=== PATIENT | male | born 1985 | race Hispanic/Latino ===

== ENCOUNTER → 2023-08-21 15:42 | Outpatient (CLI) | payer OTHER, SELFPAY ==
--- NOTE | 2023-08-21 15:44 | DI.MRI.S_ITS ---
PROCEDURE: MR ANKLE LT WO CON INDICATIONS: JOINT DERANGEMENT BILATERAL ANKLES TECHNIQUE: Noncontrast sagittal T1 spin echo and T2 fast spin echo with fat saturation, axial proton density fast spin echo and T2 fast spin echo with fat saturation, coronal T1 spin echo and T2 fast spin echo with fat saturation through the ankle/hindfoot. COMPARISON: None. FINDINGS: Image quality: Excellent. Bones and joints: Mild osseous edema is seen at the medial malleolus and at the lateral malleolus. Focal osteochondral lesion is seen at the lateral talar dome with overlying full-thickness cartilage loss and subchondral edema. No disruption of the subchondral plate or loose osteochondral fragment is seen. A large tibiotalar effusion is seen with mild synovial hypertrophy. Possible ossified intra-articular loose body lateral to the talus measuring approximately 17 x 6 mm. No hindfoot coalitions. Mild edema and cystic changes within the central calcaneus adjacent to the angle of Glissane. Medial structures: Suspected partial tearing of the the pars of the deltoid ligament. The deltoid ligament and the spring ligament complex are intact. Small amount of fluid in the posterior tibialis, flexor digitorum longus, and flexor hallucis longus tendon sheath may indicate tenosynovitis. The posterior tibial neurovascular bundle appears normal within the tarsal tunnel, without extrinsic mass effect. Lateral structures: Complete tearing of the anterior talofibular ligament and the calcaneofibular ligament. Posterior talofibular remains intact. Anterior and posterior tibiofibular ligaments are intact. There is moderate tendinosis and tenosynovitis of the peroneus brevis and longus tendons. There is partial effacement of the fat in the sinus tarsi. Anterior structures: The tibialis anterior, extensor hallucis longus, and extensor digitorum longus tendons appear intact. Posterior and plantar structures: Achilles tendon is intact. The proximal plantar fascia is intact. No abductor digiti minimi muscle atrophy to suggest Akers neuropathy. IMPRESSION: 1. Suspected osseous contusions at the medial and lateral malleoli. 2. Small osteochondral lesion at the lateral talar dome measuring 11 x 2 x 3 mm with full-thickness cartilage loss and subchondral edema but no disruption of the subchondral plate. Large tibiotalar effusion with moderate synovial hypertrophy and possible ossified loose body laterally. 3. Complete tearing of the anterior talofibular ligament and calcaneofibular ligament. 4. Moderate peroneus brevis and longus tendinosis and tenosynovitis. 5. Chronic grade 2 sprain/partial tear of the deep deltoid ligament. 6. Mild tenosynovitis of the medial flexor tendons. Approved by: José Miguel Timmons M.D. on 08/22/2023 at 12:13
--- NOTE | 2023-08-21 15:45 | DI.MRI.S_ITS ---
PROCEDURE: MR ANKLE RT WO CON INDICATIONS: JOINT DERANGEMENT BILATERAL ANKLES TECHNIQUE: Noncontrast sagittal T1 spin echo and T2 fast spin echo with fat saturation, axial proton density fast spin echo and T2 fast spin echo with fat saturation, coronal T1 spin echo and T2 fast spin echo with fat saturation through the ankle/hindfoot. COMPARISON: [facility], , ANKLE 3 VIEWS RIGHT, 08/01/2011, 10:01. FINDINGS: Image quality: Excellent. Bones and joints: Osteochondral lesion is seen at the medial talar dome measuring approximately 9 x 5 x 16 mm with subchondral edema and in situ osteochondral fragment with fluid undercutting the lesion. Small osteochondral lesion is seen at the lateral talar dome measuring 2 x 3 x 9 mm with full-thickness cartilage loss and subchondral edema but no disruption of the subchondral plate. Mild osseous edema at the medial malleolus may be secondary to an osseous contusion or traction trabecular bone injury. Cartilage irregularity is seen in the mortise joint with small anterior osteophytes that could contribute to anterior osseous impingement. Moderate tibiotalar effusion. Small ossified loose bodies are seen posterior to the mortise joint measuring up to 5 mm. Medial structures: There is high-grade versus complete tearing of the deep fibers of deltoid ligament. The spring ligament components appear to be intact. Mild tenosynovitis of the posterior tibialis, flexor digitorum longus, and flexor hallucis longus tendons. The posterior tibial neurovascular bundle appears normal within the tarsal tunnel, without extrinsic mass effect. Lateral structures: There is full-thickness tearing of the anterior talofibular ligament. Chronic grade grade 1 sprains of the calcaneofibular ligament and posterior talofibular ligament. The anterior posterior tibiofibular ligaments are intact. Mild peroneus brevis and longus tendinosis. There is effacement of the normal fat signal in the sinus tarsi. Anterior structures: The tibialis anterior, extensor hallucis longus, and extensor digitorum longus tendons appear intact. Posterior and plantar structures: Achilles tendon is intact. The proximal plantar fascia is intact. No abductor digiti minimi muscle atrophy to suggest Akers neuropathy. IMPRESSION: 1. Osteochondral lesion at the medial talar dome measuring 9 x 5 x 16 mm with subchondral edema and unstable in situ osteochondral fragment. 2. Small chronic osteochondral lesion at the lateral talar dome measuring 2 x 3 x 9 mm with overlying full-thickness cartilage loss and subchondral edema. 3. Mild osseous contusion at the medial malleolus. 4. Grade 2-3 sprain of the deltoid ligament. 5. Mild tenosynovitis of the medial flexor tendons. 6. Complete tearing of the anterior talofibular ligament. Low-grade sprains of the calcaneofibular ligament and posterior talofibular ligament. 7. Mild peroneus brevis and longus tendinosis and tenosynovitis. Approved by: José Miguel Timmons M.D. on 08/22/2023 at 12:12
== END ==
LOC: MRI 15:43
PROVIDERS: PCP Family Medicine; Referring Provider Podiatrist; Visit Provider Podiatrist
DX: S93.422A Sprain of deltoid ligament of left ankle, initial encounter (principal); S93.421A Sprain of deltoid ligament of right ankle, initial encounter; M89.9 Disorder of bone, unspecified; S90.01XA Contusion of right ankle, initial encounter; S93.492A Sprain of other ligament of left ankle, initial encounter; S93.491A Sprain of other ligament of right ankle, initial encounter; S93.411A Sprain of calcaneofibular ligament of right ankle, initial encounter; S93.412A Sprain of calcaneofibular ligament of left ankle, initial encounter; M65.872 Other synovitis and tenosynovitis, left ankle and foot; M65.871 Other synovitis and tenosynovitis, right ankle and foot; M24.871 Other specific joint derangements of right ankle, not elsewhere classified; M24.872 Other specific joint derangements of left ankle, not elsewhere classified
CPT/HCPCS: 73721

== ENCOUNTER → 2025-01-28 17:09 | Outpatient (CLI) | payer OTHER, SELFPAY ==
--- NOTE | 2025-01-28 17:15 | DI.RAD.S_ITS ---
PROCEDURE: XR HAND RT MIN 3V
== END ==
PROVIDERS: PCP Family Medicine; Referring Provider Chiropractor; Visit Provider Chiropractor
DX: M79.89 Other specified soft tissue disorders (principal)
CPT/HCPCS: 73130

== ENCOUNTER 2025-02-11 11:56 | Emergency (ER) | payer OTHER, SELFPAY ==
[2025-02-11 12:19] VITALS: BP 129/68; PULSE 60; RESP 15; TEMP 36.8; O2SAT 99; BMI 24.7
--- NOTE | 2025-02-11 13:33 | DI.RAD.S_ITS ---
PROCEDURE: XR KNEE RT 1TO2V INDICATIONS: Pain, swelling TECHNIQUE: 2 views of the knee were acquired. COMPARISON: None. FINDINGS: Bones: No fractures or dislocations. No suspicious bony lesions. Soft tissues: There is a [id number] joint effusion. No suspicious soft tissue calcifications. IMPRESSION: [id number] joint effusion. No focal bony abnormality is seen. Dictated by: Antonio Rivera M.D. on 02/11/2025 at 13:28 Approved by: Antonio Rivera M.D. on 02/11/2025 at 13:29
--- NOTE | 2025-02-11 13:35 | ED.EXTPRO ---
HPI - Extremity Problem General Chief complaint: Extremity Problem,Nontraumatic Stated complaint: swelling on right knee . Time Seen by Provider: 02/11/25 13:00 Source: patient and ciaio lumite injector Mode of arrival: Wheelchair History of Present Illness HPI Narrative: 39-year-old healthy male with no significant past medical history presenting with approximately 5 weeks of waxing and waning tenderness and inflammation to right knee, right hand, and right elbow. These symptoms have been a different intervals. Patient has been a good historian and documenting pictures on his phone. The swelling has improved both with and without antibiotics. Patient afebrile. Denies fevers, chills, nausea, vomiting, diarrhea, abdominal pain, chest pain, shortness of breath, dizziness, headache, and urinary symptoms. Related Data Home Medications ?Medication ?Instructions ?Recorded ?Confirmed acetaminophen 325 mg tablet 325 mg PO ONCE PRN 07/26/23 02/07/25 (Tylenol) ibuprofen 200 mg capsule 400 mg PO Q8H 07/26/23 02/07/25 Previous Rx's ?Medication ?Instructions ?Recorded sulfamethoxazole 800 1 tab PO BID 5 days #10 tabs 02/07/25 mg-trimethoprim 160 mg tablet acetaminophen 650 mg 650 mg PO Q8H PRN fever or pain 02/11/25 tablet,extended release (Tylenol 8 #24 tabs Hour) dexamethasone 4 mg tablet 4 mg PO Q72H #5 tabs 02/11/25 Allergies Allergy/AdvReac Type Severity Reaction Status Date / Time No Known Drug Allergies Allergy Verified 02/11/25 11:20 Review of Systems Review of Systems ROS Unobtainable: All systems reviewed & are unremarkable except as noted in HPI and below Patient History Social History Smoking Status: Never smoker Smoking Status: Never smoker Exam Initial Vital Signs Initial Vital Signs: Vital Signs Temperature 98.3 F 02/11/25 12:19 Pulse Rate 60 02/11/25 12:19 Respiratory Rate 15 02/11/25 12:19 Blood Pressure 129/68 02/11/25 12:19 Pulse Oximetry 99 02/11/25 12:19 Oxygen Delivery Method Room Air 02/11/25 12:19 Const General: cooperative, healthy appearing, comfortable, well developed and well hydrated Nutritional Appearance: average body habitus [facility] Head: normal to inspection Ears: external ears normal Nose: external nose normal and nares normal Face and sinus: sinuses nontender, face symmetric, ecchymosis not on the right, not on the left and not bilaterally, erythema not on the right, not on the left and not bilaterally and edema not on the right, not on the left and not bilaterally Mouth: lip normal Eyes General: Yes appearance normal, both eyes and all related structures Eyelids: eyelids normal Sclera: sclerae normal Pupils: PERRL Neck Neck: normal visual inspection Resp Effort & Inspection: normal respiratory effort and able to speak in complete sentences Cardio Rate: regular rate Rhythm: regular rhythm Pulses: radial pulses present GI Inspection: normal to inspection and non-distended General: bimanual renal exam normal bilaterally Back/Spine/Pelvis Back: normal to inspection Skin General: no rashes or lesions noted Neuro General: patient alert, patient awake, patient oriented x3, gait normal, moves all extremities, normal light touch, pain and propioception, no focal motor deficits and CN's II-XI intact bilaterally Cognition: normal cognition Speech: speech normal Gait: normal gait Motor: muscle tone normal throughout Sensory Exam: no sensory deficits noted Extrem Other: Right knee warm to palpation however able to range with no restriction. Mild swelling noted on exam. Patient with slight redness and swelling on right dorsum of hand at the 3rd and 4th MCPs as well as minor swelling just distal to the posterior elbow. There is no tenderness or erythema at this joint at these joints. Psych Appearance: grossly normal Mental Status: mental status grossly normal Speech and Movement: speech and movement normal Mood: congruent mood Attitude: cooperative Thought Process: normal Thought Content: normal Judgment: judgment good Course Orders Ordered: ED Orders 02/11/25 13:33 XR knee RT 1to2V Stat 02/11/25 14:17 C-Reactive Protein Quant Stat Complete Blood Count AUTO DIFF Stat Comprehensive Metabolic Panel Stat Erythrocyte Sedimentation Rate Stat Lactate (Lactic Acid) Stat Procalcitonin Stat Discontinued Medications Acetaminophen (Acetaminophen 325 Mg Tablet) 975 mg PO NOW ONE Stop: 02/11/25 13:36 Last Admin: 02/11/25 13:46 Dose: 975 mg Documented By: MALLIKA Vital Signs Vital signs: Vital Signs - 8 hr 02/11/25 12:19 Temperature 98.3 F Pulse Rate 60 Respiratory Rate 15 Blood Pressure 129/68 Pulse Oximetry 99 Oxygen Delivery Method Room Air MDM - Extremity (Nontraumatic) Lab Data 02/11/25 14:17 02/11/25 14:17 Labs: Lab Results 02/11/25 Range/Units 14:17 WBC 13.3 H (4.5-11.0) X10^3/uL RBC 4.51 (4.5-5.9) X10^6/uL Hgb 13.3 L (13.5-17.5) g/dL Hct 40.5 L (41-53) % MCV 89.8 (80-100) fL MCH 29.4 (26-34) PG MCHC 32.8 (30-36) % RDW 12.9 (11.6-14.8) % Plt Count 485 H (150-400) X10^3/uL Neut % (Auto) 77.3 H (50-75) % Lymph % (Auto) 14.2 L (25-40) % Stevens % (Auto) 7.6 (3-14) % Eos % (Auto) 0.7 L (2-4) % Baso % (Auto) 0.2 (0-2) % Neut # (Auto) 69695 H (4136-6599) /uL Lymph # (Auto) 1900 (8298-1174) /uL Stevens # (Auto) 1000 H (0-900) /uL Eos # (Auto) 100 (0-450) /uL Baso # (Auto) 0 (0-100) /uL ESR 60 H (0-15) MM/HR Sodium 139 (137-145) mmol/L Potassium 4.2 (3.4-5.1) mmol/L Chloride 105 (98-107) mmol/L Carbon Dioxide 24 (22-32) mmol/L BUN 21 H (9-20) mg/dL Creatinine 0.80 (0.66-1.25) mg/dL Estimated GFR > 60 (>60) mL/min BUN/Creatinine Ratio 26.3 H (6-22) Glucose 107 H (70-99) mg/dL Lactate 0.8 (0.7-2.1) mmol/L Calcium 9.2 (8.4-10.2) mg/dL Total Bilirubin 0.4 (0.2-1.3) mg/dL AST 28 (17-59) IU/L ALT 24 (<50) IU/L Alkaline Phosphatase 68 (38-126) U/L C-Reactive Protein 3.4 H (<1.0) mg/dL Total Protein 8.4 H (6.3-8.2) g/dL Albumin 4.6 (3.5-5.0) g/dL Globulin 3.8 (1.7-4.1) g/dL Albumin/Globulin Ratio 1.2 (1.0-2.8) Procalcitonin 0.062 (<0.5) ng/mL MDM Narrative Medical decision making narrative: Patient presents w/tenderness and swelling of the right knee in the context of multiple other joints with inflammation and effusion as listed above. Bloodwork performed to evaluate for evidence of severe bacterial infection, severe anemia, electrolyte abnl (including hypokalemia, hyperkalemia, hypernatremia, hyponatremia, hyperglycemia, hypoglycemia, etc). X-rays to rule out osteomyelitis, necrotizing fasciitis. No Duplex indicated as I considered but do not suspect DVT. Rheumatology consult I attempted but unable to be performed. Patient with elevated ESR CRP white blood cell count and platelets however relatively mild all consistent with inflammation. Given the pattern of symptoms the patient is well-appearing with no abnormal vital signs considered cellulitis however this is unlikely. Considered septic joint however patient able to bear weight and move joint with no problem. Shared decision-making made with the patient in terms of potentially doing an arthrocentesis patient agreed that the risk outweighs benefit. The patient will be prescribed steroids and anti-inflammatories and recommended to follow up with the primary care and Rheumatology as soon as possible. And to continue to document his symptoms. Discharge Plan Departure Patient Disposition: Home Clinical Impression: Inflammation of multiple joints Instructions: DI for Knee Pain Activity Restrictions/Additional Instructions: Please return if you have difficulty walking, bearing weight, moving the affected joint, worsening pain after tomorrow, a sudden loss of sensation, or if the affected area becomes cold. Please roll picker Arnica gel OTC for topical joint pain relief. If the pain becomes extreme please take the steroids prescribed as well as nonsteroidal medication for pain Please follow-up with your primary care doctor as soon as possible for further evaluation. Please continue to document all of your symptoms including photographs with timing. If you feel that you start to have a fever please measure temperature with a thermometer. Prescriptions: New dexamethasone 4 mg tablet 4 mg PO Q72H Qty: 5 0RF Rx Instructions: Please take 2.5 pills once for pain and weight is 72 hours before you potentially take this medication again. acetaminophen [Tylenol 8 Hour] 650 mg tablet extended release 650 mg PO Q8H PRN (Reason: fever or pain) Qty: 24 0RF No Action sulfamethoxazole-trimethoprim 800-160 mg tablet 1 tab PO BID 5 Days Qty: 10 0RF ibuprofen 200 mg capsule 400 mg PO Q8H acetaminophen [Tylenol] 325 mg tablet 325 mg PO ONCE PRN Referrals: Lalito Roberts DO [Primary Care Provider, Family Practice] Stand Alone Forms: Patient Portal/API
[2025-02-11] MEDS: ACETAMINOPHEN 325 MG TABLET 975 MG PO (13:46)
[2025-02-11 14:27] LABS: Add Manual Diff / Slide Review NO; Hematocrit 40.5 % (41-53); Hemoglobin 13.3 g/dL (13.5-17.5); Lymphocytes Absolute Auto 1900 /uL (1100-4500); Mean Corpuscular HGB Conc 32.8 % (30-36); Mean Corpuscular Hemoglobin 29.4 PG (26-34); Mean Corpuscular Volume 89.8 fL (80-100); Platelet Count 485 X10^3/uL (150-400)
[2025-02-11 14:39] LABS: Lactate (Lactic Acid) 0.8 mmol/L (0.7-2.1)
[2025-02-11 14:42] LABS: Alanine Aminotransferase 24 IU/L (<50); Albumin 4.6 g/dL (3.5-5.0); Albumin Globulin Ratio 1.2 (1.0-2.8); Alkaline Phosphatase 68 U/L (38-126); Blood Urea Nitrogen 21 mg/dL (9-20); Calcium 9.2 mg/dL (8.4-10.2); Carbon Dioxide 24 mmol/L (22-32); Chloride 105 mmol/L (98-107); Estimated Glomerular Filt Rate > 60 mL/min (>60); Globulin 3.8 g/dL (1.7-4.1); Glucose 107 mg/dL (70-99); HEMOLYSIS < 15 (0-50); Potassium 4.2 mmol/L (3.4-5.1); Sodium 139 mmol/L (137-145); Total Protein 8.4 g/dL (6.3-8.2)
[2025-02-11 14:57] LABS: Procalcitonin 0.062 ng/mL (<0.5)
== END 2025-02-11 16:28 | disposition home or self-care (01) ==
PROVIDERS: Emergency Provider Emergency Medicine; PCP Family Medicine
DX: M17.11 Unilateral primary osteoarthritis, right knee (principal); M19.021 Primary osteoarthritis, right elbow; M19.041 Primary osteoarthritis, right hand
CPT/HCPCS: 73560; 80053; 83605; 84145; 85025; 85651; 86140; 99283; 99284

== ENCOUNTER → 2025-02-12 15:35 | Outpatient (CLI) | payer OTHER, SELFPAY ==
[2025-02-12 15:49] LABS: Uric Acid 8.2 mg/dL (3.5-8.5)
== END ==
PROVIDERS: PCP Family Medicine; Referring Provider Family Medicine; Visit Provider Family Medicine
DX: M13.0 Polyarthritis, unspecified (principal)
CPT/HCPCS: 84550

== ENCOUNTER → 2025-03-09 10:27 | Outpatient (CLI) | payer OTHER, SELFPAY ==
[2025-03-09 11:38] LABS: Add Manual Diff / Slide Review NO; Hematocrit 41.4 % (41-53); Hemoglobin 13.7 g/dL (13.5-17.5); Lymphocytes Absolute Auto 2100 /uL (1100-4500); Mean Corpuscular HGB Conc 33.2 % (30-36); Mean Corpuscular Hemoglobin 29.5 PG (26-34); Mean Corpuscular Volume 88.8 fL (80-100); Platelet Count 320 X10^3/uL (150-400)
[2025-03-09 11:49] LABS: Alanine Aminotransferase 23 IU/L (<50); Albumin 4.4 g/dL (3.5-5.0); Albumin Globulin Ratio 1.5 (1.0-2.8); Alkaline Phosphatase 61 U/L (38-126); Blood Urea Nitrogen 17 mg/dL (9-20); Calcium 9.4 mg/dL (8.4-10.2); Carbon Dioxide 24 mmol/L (22-32); Chloride 106 mmol/L (98-107); Estimated Glomerular Filt Rate > 60 mL/min (>60); Globulin 3.0 g/dL (1.7-4.1); Glucose 99 mg/dL (70-99); HEMOLYSIS < 15 (0-50); Potassium 4.7 mmol/L (3.4-5.1); Sodium 138 mmol/L (137-145); Total Protein 7.4 g/dL (6.3-8.2)
[2025-03-09 17:17] LABS: HIV 1 & 2 Ab/Ag 4th Gen Combo NEGATIVE (NEGATIVE); Hep C Virus Ab w/Reflex Quant NEGATIVE s/c (NEGATIVE)
== END ==
PROVIDERS: PCP Family Medicine; Referring Provider Family Medicine; Visit Provider Family Medicine
DX: Z11.59 Encounter for screening for other viral diseases (principal); Z11.4 Encounter for screening for human immunodeficiency virus [HIV]; M25.50 Pain in unspecified joint; M25.40 Effusion, unspecified joint
CPT/HCPCS: 36415; 80053; 85025; 85651; 86038; 86140; 86200; 86430; 86803; 87389